=== PATIENT | female | born 1945 | race Caucasian/White ===

== ENCOUNTER 2025-03-02 14:45 | Outpatient (RCR) | payer MEDICARE, OTHER, SELFPAY | END 2025-03-17 06:52 | disposition home or self-care (01) | LOC: PT 14:45 | PROVIDERS: PCP Family Medicine; Visit Provider Family Medicine | DX: M54.50 Low back pain, unspecified (principal) | CPT/HCPCS: 97035; 97110; 97112; 97140; 97161 ==